=== PATIENT | female | born 1985 | race Caucasian/White ===

== ENCOUNTER 2022-05-28 04:05 | Day surgery (SDC) | payer OTHER ==
[2022-05-24 12:21] VITALS: BMI 25.7
[2022-05-28] MEDS ORDERED: KETOROLAC TROMETHAMINE 30 MG/1 ML VIAL ONE (17:10)
[2022-05-28] MEDS ORDERED: MIDAZOLAM HCL 2 MG/2 ML SINGLE DOSE VIAL ONE (17:10)
[2022-05-28 18:00] VITALS: TEMP 97.6
[2022-05-28 19:19] VITALS: BP 118/73; PULSE 56; RESP 20
== END 2022-05-28 18:50 | disposition home or self-care (01) ==
LOC: JASU-SURG 04:05
PROVIDERS: ATTEND Urology
PROC: 0TF4XZZ Fragmentation in Left Kidney Pelvis, External Approach (ICD-10-PCS; principal; 2022-05-28 14:00)
DX: N20.0 Calculus of kidney (principal)
CPT/HCPCS: 81025

== ENCOUNTER 2022-10-29 04:21 | Day surgery (SDC) | payer OTHER ==
[2022-10-24 09:52] VITALS: BMI 25.0
[2022-10-29] MEDS ORDERED: MIDAZOLAM HCL 2 MG/2 ML SINGLE DOSE VIAL ONE ×2 (13:49→14:17)
[2022-10-29] MEDS ORDERED: LIDOCAINE HCL/PF 2% SDV 5ML VIAL ONE (14:13)
[2022-10-29] MEDS ORDERED: DEXAMETHASONE SOD PHOSPHATE 4 MG/1 ML VIAL ONE ×2 (14:13)
[2022-10-29] MEDS ORDERED: ONDANSETRON 4 MG/2 ML VIAL ONE (14:13)
[2022-10-29 18:19] VITALS: BP 137/83; PULSE 84; RESP 20; TEMP 97.9
== END 2022-10-29 15:20 | disposition home or self-care (01) ==
LOC: JASU-SURG 04:21
PROVIDERS: ATTEND Urology
PROC: 0TF7XZZ Fragmentation in Left Ureter, External Approach (ICD-10-PCS; principal; 2022-10-29 13:30)
DX: N20.1 Calculus of ureter (principal)
CPT/HCPCS: 81025